=== PATIENT | female | born 1970 | race Caucasian/White ===

== ENCOUNTER 2019-09-25 15:36 | Emergency (ER) | payer MEDICAID ==
[~2019-09-25] VITALS: Ht 160 cm; Wt 85.3 kg
[2019-09-25 15:59] VITALS: BP 134/95
[2019-09-25] MEDS ORDERED: ketorolac tromethamine 15mg/ml inj. IM ONE (16:35)
[2019-09-25] MEDS ORDERED: IBUP-1985 PO (16:36)
== END 2019-09-25 17:03 | disposition home or self-care (01) ==
LOC: ER 15:36
DX: M25.512 Pain in left shoulder (principal); Z88.5 Allergy status to narcotic agent; W17.89XA Other fall from one level to another, initial encounter; Y93.89 Activity, other specified; Y92.828 Other wilderness area as the place of occurrence of the external cause; Y99.9 Unspecified external cause status
CPT/HCPCS: 73030; 96372; 99283; J1885